=== PATIENT | male | born 1980 | race Hispanic/Latino ===

== ENCOUNTER 2019-03-05 01:15 | Emergency (ER) | payer SELFPAY ==
[2019-03-05] MEDS ORDERED: LIDOCAINE VISCOUS 2% SOLN 15 ML UDC ONE (01:53)
--- NOTE | 2019-03-05 02:14 | ER ---
Nurse's Notes [facility] Name: Zachary Hendricks Age: 39 yrs Sex: Male : 1980 Arrival Date: 03/05/2019 Time: 01:18 Bed 17 Private MD: Diagnosis: Foreign body in right ear-bug, removed Presentation: 03/05 01:25 Presenting complaint: Patient states: that he was outside and felt something fly into his right ear. Can hear it in there. Transition of care: patient was not received from another setting of care. Onset of symptoms was March 05, 2019 at 01:00. Risk Assessment: Do you want to hurt yourself or someone else? Patient reports no desire to harm self or others. Initial Sepsis Screen: Does the patient meet any 2 criteria? HR > 90 bpm. Yes Does the patient have a suspected source of infection? No. Patient's initial sepsis screen is negative. Care prior to arrival: None. 01:25 Method Of Arrival: Ambulatory 01:25 Acuity: RODDY 5 Historical: - Allergies: : "some antibiotic"; fc - Home Meds: : None [Active]; fc - PMHx: : None; fc - PSHx: : None; fc - Immunization history:: Last tetanus immunization: unknown. - Social history:: Smoking status: Patient uses tobacco products, smokes one-half pack cigarettes per day, Patient uses alcohol, on a daily basis. street drugs, cocaine. - Ebola Screening: : Patient negative for fever greater than or equal to 101.5 degrees Fahrenheit, and additional compatible Ebola Virus Disease symptoms Patient denies exposure to infectious person Patient denies travel to an Ebola-affected area in the 21 days before illness onset. Screenin:27 Abuse screen: Denies threats or abuse. Nutritional screening: No deficits noted. Tuberculosis screening: No symptoms or risk factors identified. Fall Risk None identified. Assessment: 01:30 General: Appears in no apparent distress. uncomfortable, Behavior is calm, cooperative, rr5 appropriate for age. Pain: Denies pain. Neuro: Level of Consciousness is awake, alert, obeys commands, Oriented to person, place, time, situation, Appropriate for age. Cardiovascular: Capillary refill < 3 seconds Patient's skin is warm and dry. Respiratory: Airway is patent Respiratory effort is even, unlabored, Respiratory pattern is regular, symmetrical. GI: No signs and/or symptoms were reported involving the gastrointestinal system. : No signs and/or symptoms were reported regarding the genitourinary system. EENT: Ear canal w/ foreign body noted from right ear. Derm: Skin is intact, Skin temperature is warm. 01:30 Musculoskeletal: Capillary refill < 3 seconds, Range of motion: intact in all rr5 extremities. 02:10 Reassessment: foreign body (insect type green in appearance) removed by ED provider. by rr5 the use of NS flushing. 02:23 Reassessment: Patient appears in no apparent distress at this time. Patient is alert, rr5 oriented x 3, equal unlabored respirations, skin warm/dry/pink. discharge instruction given and explained without complaints made. Patient denies pain at this time. Patient states feeling better. Patient states symptoms have improved. Vital Signs: 01:27 BP 137 / 101; Pulse 103; Resp 18; Temp 98.7(O); Pulse Ox 99% on R/A; Weight 81.65 kg fc (R); Height 5 ft. 9 in. (175.26 cm) (R); Pain 0/10; 02:16 BP 122 / 85; Pulse 92; Resp 16; Temp 98.6; Pulse Ox 99% on R/A; Pain 0/10; rr5 01:27 Body Mass Index 26.58 (81.65 kg, 175.26 cm) ED Course: 01:18 Patient arrived in ED. am2 01:25 Art Toledo PA is PHCP. cp 01:25 Harvinder Mtz MD is Attending Physician. cp 01:26 Triage completed. fc 01:27 Arm band placed on Patient placed in an exam room, on a stretcher. fc 01:27 Patient has correct armband on for positive identification. Bed in low position. Call light in reach. Pulse ox on. NIBP on. 01:27 No provider procedures requiring assistance completed. fc 01:45 Jagdish Melo RN is Primary Nurse. rr5 02:12 Bhavna Trinidad MD is Referral Physician. cp 02:17 Patient did not have IV access during this emergency room visit. rr5 Administered Medications: 01:55 Drug: viscous lidocaine 2 % 3 drops Route: Otic; Site: right ear; rr5 02:26 Follow up: Response: No adverse reaction rr5 Outcome: 02:14 Discharge ordered by . keyon 02:24 Discharged to home ambulatory, with family. rr5 02:24 Condition: stable 02:24 Discharge instructions given to patient, family, Instructed on discharge instructions, follow up and referral plans. medication usage, Demonstrated understanding of instructions, follow-up care, medications, Prescriptions given X 1. 02:27 Patient left the ED. rr5 Signatures: Cheyanne Hooker, RN RN Art Virk PA PA cp Moreno, Amanda am2 Roque, Raymond, RN RN rr5
--- NOTE | 2019-03-06 02:29 | EDPHYS ---
Physician Documentation [facility] Name: Zachary Hendricks Age: 39 yrs Sex: Male : 1980 Arrival Date: 03/05/2019 Time: 01:18 Bed 17 Private MD: ED Physician Harvinder Mtz HPI: 03/05 01:35 This 39 yrs old Male presents to ER via Ambulatory with complaints of Foreign cp Body In Ear. 01:35 The patient presents with a foreign body sensation, presumably from an insect. The cp complaints affect the right ear. Onset: The symptoms/episode began/occurred today. Associated signs and symptoms: Pertinent negatives: cough, fever, drainage or bleeding from ear. Severity of symptoms: in the emergency department the symptoms are unchanged despite home interventions. Historical: - Allergies: :27 "some antibiotic"; fc - Home Meds: :27 None [Active]; fc - PMHx: :27 None; fc - PSHx: :27 None; fc - Immunization history:: Last tetanus immunization: unknown. - Social history:: Smoking status: Patient uses tobacco products, smokes one-half pack cigarettes per day, Patient uses alcohol, on a daily basis. street drugs, cocaine. - Ebola Screening: : Patient negative for fever greater than or equal to 101.5 degrees Fahrenheit, and additional compatible Ebola Virus Disease symptoms Patient denies exposure to infectious person Patient denies travel to an Ebola-affected area in the 21 days before illness onset. ROS: 01:38 Constitutional: Negative for body aches, chills, fever, poor PO intake. cp 01:38 Eyes: Negative for foreign body sensation, pain, redness. cp 01:38 ENT: Positive for foreign body sensation, Negative for drainage from ear(s), sore throat, difficulty swallowing, difficulty handling secretions. 01:38 Respiratory: Negative for cough, shortness of breath, wheezing. 01:38 Abdomen/GI: Negative for abdominal pain, nausea, vomiting, and diarrhea. 01:38 Skin: Negative for cellulitis, rash. 01:38 All other systems are negative. Exam: 01:45 Constitutional: The patient appears in no acute distress, alert, awake, well developed, cp well nourished. 01:45 Head/Face: Normocephalic, atraumatic. cp 01:45 Eyes: Periorbital structures: appear normal, Conjunctiva: normal, no exudate, no injection, Lids and lashes: appear normal, bilaterally. 01:45 ENT: External ear(s): are unremarkable, Ear canal(s): erythema, that is moderate, of the right canal, foreign body, an insect, in the right external ear canal, TM's: erythema, that is mild, on the right, Examination of the other ear shows no obvious abnormality, Nose: is normal, Mouth: is normal. 01:45 Chest/axilla: Inspection: normal. 01:45 Cardiovascular: Rate: tachycardic. 01:45 Respiratory: the patient does not display signs of respiratory distress, Respirations: normal, no use of accessory muscles, no retractions, no splinting, no tachypnea. 01:45 Skin: no rash present. Vital Signs: 01:27 BP 137 / 101; Pulse 103; Resp 18; Temp 98.7(O); Pulse Ox 99% on R/A; Weight 81.65 kg fc (R); Height 5 ft. 9 in. (175.26 cm) (R); Pain 0/10; 02:16 BP 122 / 85; Pulse 92; Resp 16; Temp 98.6; Pulse Ox 99% on R/A; Pain 0/10; rr5 01:27 Body Mass Index 26.58 (81.65 kg, 175.26 cm) Procedures: 02:10 Foreign Body Removal: an insect, from the right ear canal, by warm water irrigation. cp The patient tolerated the removal well. MDM: 01:25 Patient medically screened. cp 01:35 Differential diagnosis: otitis media, otitis externa, ruptured TM, foreign body, cp cerumen impaction. 02:14 Data reviewed: vital signs, nurses notes, and as a result, I will discharge patient. cp 02:14 Counseling: I had a detailed discussion with the patient and/or guardian regarding: the cp historical points, exam findings, and any diagnostic results supporting the discharge/admit diagnosis, to return to the emergency department if symptoms worsen or persist or if there are any questions or concerns that arise at home. Response to treatment: the patient's symptoms have resolved after treatment, insect removed from right ear canal, and as a result, I will discharge patient. Administered Medications: 01:55 Drug: viscous lidocaine 2 % 3 drops Route: Otic; Site: right ear; rr5 02:26 Follow up: Response: No adverse reaction rr5 Disposition: 05:54 Co-signature as Attending Physician, Harvinder Mtz MD I agree with the assessment and tw4 plan of care. Disposition: 03/05/19 02:14 Discharged to Home. Impression: Foreign body in right ear - bug, removed. - Condition is Stable. - Discharge Instructions: Ear Foreign Body. - Prescriptions for Cipro HC 0.2- 1 % Otic Drops, Suspension - instill 3 drops by OTIC route every 12 hours for 7 days instill drops in right ear canal as directed; 10 milliliter. - Medication Reconciliation Form, Thank You Letter, Antibiotic Education, Prescription Opioid Use form. - Follow up: Bhavna Trinidad MD; When: 2 - 3 days; Reason: Worsening of condition. - Problem is new. - Symptoms have improved. Signatures: Cheyanne Hooker RN RN Art Toledo PA PA Harvinder El MD MD tw4 Jagdish Melo RN RN rr5 Corrections: (The following items were deleted from the chart) 02:27 02:14 03/05/2019 02:14 Discharged to Home. Impression: Foreign body in right ear - bug, rr5 removed. Condition is Stable. Forms are Medication Reconciliation Form, Thank You Letter, Antibiotic Education, Prescription Opioid Use. Follow up: Bhavna Trinidad; When: 2 - 3 days; Reason: Worsening of condition. Problem is new. Symptoms have improved. cp 02:42 02:15 This 39 yrs old Male presents to ER via Ambulatory with complaints of cp Foreign Body In Ear. cp
== END 2019-03-05 02:27 | disposition home or self-care (01) ==
LOC: ER 01:15
PROC: 09C37ZZ Extirpation of Matter from Right External Auditory Canal, Via Natural or Artificial Opening (ICD-10-PCS; principal; 2019-03-05)
DX: T16.1XXA Foreign body in right ear, initial encounter (principal); F17.210 Nicotine dependence, cigarettes, uncomplicated
CPT/HCPCS: 99283

== ENCOUNTER 2020-08-07 11:32 | Emergency (ER) | payer SELFPAY ==
--- NOTE | 2020-08-07 12:01 | ER ---
Nurse's Notes [facility] Name: Zachary Hendricks Age: 40 yrs Sex: Male : 1980 Arrival Date: 08/07/2020 Time: 11:33 Bed 20 Private MD: Diagnosis: Epistaxis Presentation: 08/07 11:33 Chief complaint: Patient states: nose bleed that started yesterday and has been sv swallowing blood and then vomited the blood. Pt has no bleeding at this time. Coronavirus screen: Client denies travel out of the [place] in the last 14 days. At this time, the client does not indicate any symptoms associated with coronavirus-19. Ebola Screen: No symptoms or risks identified at this time. Initial Sepsis Screen: Does the patient meet any 2 criteria? No. Patient's initial sepsis screen is negative. Does the patient have a suspected source of infection? No. Patient's initial sepsis screen is negative. Risk Assessment: Do you want to hurt yourself or someone else? Patient reports no desire to harm self or others. Onset of symptoms was August 06, 2020. 11:33 Method Of Arrival: Law Enforcement: [facility] 11:33 Acuity: RODDY 4 sv Triage Assessment: 11:37 General: Appears in no apparent distress. comfortable, Behavior is calm, cooperative, sv appropriate for age. Pain: Denies pain. Neuro: Level of Consciousness is awake, alert, obeys commands, Oriented to person, place, time, situation, Moves all extremities. Full function. Respiratory: Respiratory effort is even, unlabored, Respiratory pattern is regular, symmetrical. Derm: Skin is. Historical: - Allergies: 11:36 "some antibiotic"; sv - PMHx: 11:36 None; sv - PSHx: 11:36 None; sv - Immunization history:: Adult Immunizations. - Social history:: Smoking status: . Screenin:36 Abuse screen: Denies threats or abuse. Denies injuries from another. Nutritional sv screening: No deficits noted. Tuberculosis screening: No symptoms or risk factors identified. Fall Risk None identified. Assessment: 12:07 Reassessment: Patient appears in no apparent distress at this time. No changes from sv previously documented assessment. Patient and/or family updated on plan of care and expected duration. Pain level reassessed. Patient is alert, oriented x 3, equal unlabored respirations, skin warm/dry/pink. Vital Signs: 11:33 BP 120 / 74; Pulse 57; Resp 16; Temp 98.2; Pulse Ox 100% ; Pain 0/10; sv ED Course: 11:33 Patient arrived in ED. sv 11:35 Triage completed. sv 11:36 Arm band placed on. sv 11:36 Patient has correct armband on for positive identification. Bed in low position. Call sv light in reach. PD at the bedside, pt currently in handcuffs. Pulse ox on. NIBP on. 11:38 Tish Matthews FNP-C is PHCP. kb 11:38 Jj Vicente MD is Attending Physician. kb 11:39 Bhavna Lazo, MALLORIE is Primary Nurse. sv 11:48 Awaiting ED provider evaluation. sv 11:54 Nurse Practitioner and/or Physician Powertrain Engineer to see patient. sv 12:07 No provider procedures requiring assistance completed. Patient did not have IV access sv during this emergency room visit. Administered Medications: No medications were administered Outcome: 11:59 Discharge ordered by MD. kb 12:08 Discharged to Law Enforcement sv 12:08 Condition: stable 12:08 Discharge instructions given to patient, Instructed on discharge instructions, follow up and referral plans. Demonstrated understanding of instructions, follow-up care. 12:08 Patient left the ED. sv Signatures: Tish Matthews FNP-C HVAC R INSTRUCTOR-Ckb Bhavna Lazo, RN RN sv Corrections: (The following items were deleted from the chart) 11:42 11:33 Chief complaint: Patient states: nose bleed that started yesterday and has been sv swallowing blood and then vomited the blood. sv
--- NOTE | 2020-08-07 12:01 | EDPHYS ---
Physician Documentation [facility] Name: Zachary Hendricks Age: 40 yrs Sex: Male : 1980 Arrival Date: 08/07/2020 Time: 11:33 Bed 20 Private MD: ED Physician Jj Vicente HPI: 08/07 11:57 This 40 yrs old Male presents to ER via Law Enforcement with complaints of kb Nose Bleed. 11:57 The patient presents with a nose bleed, and the bleeding resolved prior to arrival. kb Onset: The symptoms/episode began/occurred 4 day(s) ago. Modifying factors: The symptoms are alleviated by nothing. the symptoms are aggravated by nothing. Associated signs and symptoms: The patient has no apparent associated signs or symptoms, Loss of consciousness: the patient experienced no loss of consciousness. Severity of symptoms: At their worst the symptoms were mild in the emergency department the symptoms have resolved. The patient has not experienced similar symptoms in the past. The patient has not recently seen a physician. Pt reports he has been having nosebleeds for the last 4 mornings. . Historical: - Allergies: 11:36 "some antibiotic"; sv - PMHx: 11:36 None; sv - PSHx: 11:36 None; sv - Immunization history:: Adult Immunizations. - Social history:: Smoking status: . ROS: 11:57 Constitutional: Negative for fever, chills, and weight loss, Cardiovascular: Negative kb for chest pain, palpitations, and edema, Respiratory: Negative for shortness of breath, cough, wheezing, and pleuritic chest pain, MS/Extremity: Negative for injury and deformity, Skin: Negative for injury, rash, and discoloration, Neuro: Negative for headache, weakness, numbness, tingling, and seizure. 11:57 ENT: Positive for nose bleed. 11:59 Abdomen/GI: Positive for nausea, Negative for abdominal pain, vomiting, diarrhea. kb Exam: 11:59 Constitutional: This is a well developed, well nourished patient who is awake, alert, kb and in no acute distress. Head/Face: Normocephalic, atraumatic. ENT: Nares patent. No nasal discharge, no septal abnormalities noted. Tympanic membranes are normal and external auditory canals are clear. Oropharynx with no redness, swelling, or masses, exudates, or evidence of obstruction, uvula midline. Mucous membranes moist. Neck: Trachea midline, no thyromegaly or masses palpated, and no cervical lymphadenopathy. Supple, full range of motion without nuchal rigidity, or vertebral point tenderness. No Meningismus. Chest/axilla: Normal chest wall appearance and motion. Nontender with no deformity. No lesions are appreciated. Cardiovascular: Regular rate and rhythm with a normal S1 and S2. No gallops, murmurs, or rubs. Normal PMI, no JVD. No pulse deficits. Respiratory: Lungs have equal breath sounds bilaterally, clear to auscultation and percussion. No rales, rhonchi or wheezes noted. No increased work of breathing, no retractions or nasal flaring. Abdomen/GI: Soft, non-tender, with normal bowel sounds. No distension or tympany. No guarding or rebound. No evidence of tenderness throughout. Skin: Warm, dry with normal turgor. Normal color with no rashes, no lesions, and no evidence of cellulitis. MS/ Extremity: Pulses equal, no cyanosis. Neurovascular intact. Full, normal range of motion. Neuro: Awake and alert, GCS 15, oriented to person, place, time, and situation. Cranial nerves II-XII grossly intact. Motor strength 5/5 in all extremities. Sensory grossly intact. Cerebellar exam normal. Normal gait. Vital Signs: 11:33 BP 120 / 74; Pulse 57; Resp 16; Temp 98.2; Pulse Ox 100% ; Pain 0/10; sv MDM: 11:38 Patient medically screened. kb 11:56 Data reviewed: vital signs, nurses notes. Data interpreted: Pulse oximetry: on room air kb is 100 %. Interpretation: normal. Counseling: I had a detailed discussion with the patient and/or guardian regarding: the historical points, exam findings, and any diagnostic results supporting the discharge/admit diagnosis, the need for outpatient follow up, an ENT specialist, to return to the emergency department if symptoms worsen or persist or if there are any questions or concerns that arise at home. Administered Medications: No medications were administered Disposition: 18:56 Co-signature as Attending Physician, Jj Vicente MD I agree with the assessment and kdr plan of care. Disposition: 08/07/20 11:59 Discharged to Home. Impression: Epistaxis. - Condition is Stable. - Discharge Instructions: Nosebleed, [id number]. - Medication Reconciliation Form, Thank You Letter, Antibiotic Education, Prescription Opioid Use form. - Follow up: Emergency Department; When: As needed; Reason: Worsening of condition. Follow up: Private Physician; When: 2 - 3 days; Reason: Recheck today's complaints, Continuance of care, Re-evaluation by your physician. Signatures: Tish Matthews, FREDDY-C HELICOPTER DISPATCHER-Bhavna Ching RN RN sv Jj Vicente MD MD [facility] Corrections: (The following items were deleted from the chart) 11:59 11:57 Constitutional: Negative for fever, chills, and weight loss, Cardiovascular: kb Negative for chest pain, palpitations, and edema, Respiratory: Negative for shortness of breath, cough, wheezing, and pleuritic chest pain, Abdomen/GI: Negative for abdominal pain, nausea, vomiting, diarrhea, and constipation, MS/Extremity: Negative for injury and deformity, Skin: Negative for injury, rash, and discoloration, Neuro: Negative for headache, weakness, numbness, tingling, and seizure, kb 12:08 11:59 08/07/2020 11:59 Discharged to Home. Impression: Epistaxis. Condition is Stable. sv Forms are Medication Reconciliation Form, Thank You Letter, Antibiotic Education, Prescription Opioid Use. Follow up: Emergency Department; When: As needed; Reason: Worsening of condition. Follow up: Private Physician; When: 2 - 3 days; Reason: Recheck today's complaints, Continuance of care, Re-evaluation by your physician. kb
[2020-08-07 12:16] VITALS: BP 120/74; TEMP 98.2; O2SAT 100
== END 2020-08-07 12:08 | disposition home or self-care (01) ==
LOC: ER 11:32
DX: R04.0 Epistaxis (principal); Z88.1 Allergy status to other antibiotic agents
CPT/HCPCS: 99283

== ENCOUNTER 2022-05-05 11:54 | Emergency (ER) | payer SELFPAY ==
--- NOTE | 2022-05-05 12:38 | EDPHYS ---
Physician Documentation [facility] Name: Zachary Hendricks Age: 42 yrs Sex: Male : 1980 Arrival Date: 05/05/2022 Time: 11:55 Bed Treatment Private MD: ED Physician Art Amaya Historical: - Allergies: 05/05 12:25 "some antibiotic"; iw - Home Meds: 12:25 None [Active]; iw - PMHx: 12:25 None; iw - PSHx: 12:25 None; iw Vital Signs: 13:00 BP 140 / 78; Pulse 69; Resp 16; Temp 98.3; Pulse Ox 98% on R/A; iw MDM: 12:29 Patient medically screened. pm1 12:37 Counseling: I had a detailed discussion with the patient and/or guardian regarding: the pm1 historical points, exam findings, and any diagnostic results supporting the discharge/admit diagnosis, the need for outpatient follow up, an ENT specialist, a family practitioner, to return to the emergency department if symptoms worsen or persist or if there are any questions or concerns that arise at home. Administered Medications: No medications were administered Disposition Summary: 05/05/22 12:38 Discharge Ordered Location: Home pm1 Problem: new pm1 Symptoms: have improved pm1 Condition: Stable pm1 Diagnosis - Otitis media, unspecified, right ear pm1 Followup: pm1 - With: Emergency Department - When: As needed - Reason: Worsening of condition Followup: pm1 - With: Private Physician - When: 2 - 3 days - Reason: Recheck today's complaints, Continuance of care, Re-evaluation by your physician Discharge Instructions: - Discharge Summary Sheet pm1 - Otitis Media, Adult pm1 Forms: - Medication Reconciliation Form pm1 - Thank You Letter pm1 - Antibiotic Education pm1 - Prescription Opioid Use pm1 Prescriptions: - Augmentin 875-125 mg Oral Tablet - take 1 tablet by ORAL route every 12 hours for 10 days; 20 tablet; Refills: 0, pm1 Product Selection Permitted - Tramadol 50 mg Oral Tablet - take 1 tablet by ORAL route every 8 hours as needed; 12 tablet; Refills: 0, pm1 Product Selection Permitted Signatures: Annika Fair RN RN iw Nadeem Wallis NP BRANCH LENDING OFFICER pm1
--- NOTE | 2022-05-05 12:38 | ER ---
Nurse's Notes [facility] Name: Zachary Hendricks Age: 42 yrs Sex: Male : 1980 Arrival Date: 05/05/2022 Time: 11:55 Bed Treatment Private MD: Diagnosis: Otitis media, unspecified, right ear Presentation: 05/05 12:24 Chief complaint: Patient states: right ear pain X 3 days. Coronavirus screen: At this iw time, the client does not indicate any symptoms associated with coronavirus-19. Ebola Screen: Patient negative for fever greater than or equal to 101.5 degrees Fahrenheit, and additional compatible Ebola Virus Disease symptoms Patient denies exposure to infectious person. Patient denies travel to an Ebola-affected area in the 21 days before illness onset. No symptoms or risks identified at this time. Initial Sepsis Screen: Does the patient meet any 2 criteria? No. Patient's initial sepsis screen is negative. Does the patient have a suspected source of infection? No. Patient's initial sepsis screen is negative. Risk Assessment: Do you want to hurt yourself or someone else? Patient reports no desire to harm self or others. Onset of symptoms was May 05, 2022. 12:24 Method Of Arrival: Ambulatory iw 12:24 Acuity: RODDY 4 iw Triage Assessment: 13:00 General: Appears in no apparent distress. Behavior is calm, cooperative. iw Historical: - Allergies: 12:25 "some antibiotic"; iw - Home Meds: 12:25 None [Active]; iw - PMHx: 12:25 None; iw - PSHx: 12:25 None; iw Screenin:00 Abuse screen: Denies threats or abuse. Denies injuries from another. Nutritional iw screening: No deficits noted. Tuberculosis screening: No symptoms or risk factors identified. Fall Risk None identified. Assessment: 12:40 General: Appears in no apparent distress. Behavior is calm, cooperative. Pain: iw Complains of pain in right ear. Neuro: Level of Consciousness is awake, alert, obeys commands, Oriented to person, place, time, situation. EENT: Reports pain in right ear. Vital Signs: 13:00 BP 140 / 78; Pulse 69; Resp 16; Temp 98.3; Pulse Ox 98% on R/A; iw ED Course: 11:55 Patient arrived in ED. am2 12:21 Annika Fair RN is Primary Nurse. iw 12:25 Triage completed. iw 12:25 Arm band placed on. iw 12:27 Nadeem Wallis NP is PHCP. pm1 12:28 Art Amaya MD is Attending Physician. pm1 12:30 Patient has correct armband on for positive identification. iw 13:07 No provider procedures requiring assistance completed. Patient did not have IV access iw during this emergency room visit. Administered Medications: No medications were administered Medication: 12:40 VIS not applicable for this client. iw Outcome: 12:38 Discharge ordered by . pm1 13:07 Discharged to home ambulatory. iw 13:07 Condition: good 13:07 Discharge instructions given to patient, Instructed on discharge instructions, follow up and referral plans. medication usage, Demonstrated understanding of instructions, follow-up care, medications, Prescriptions given X 1. 13:08 Patient left the ED. iw Signatures: Annika Fair RN RN iw Nadeem Wallis NP [employer] pm1 Lian Becerril am2 Corrections: (The following items were deleted from the chart) 20:20 12:00 BP 140 / 78; Pulse 69bpm; Resp 16bpm; Pulse Ox 98% RA; Temp 98.3F; iw iw
== END 2022-05-05 13:08 | disposition home or self-care (01) ==
LOC: ER 11:54
DX: H66.91 Otitis media, unspecified, right ear (principal)